=== PATIENT | female | born 2000 | race Caucasian/White ===

== ENCOUNTER 2018-11-05 18:21 | Emergency (ER) | payer MEDICAID ==
[~2018-11-05] VITALS: Ht 149.9 cm; Wt 58.2 kg
[2018-11-05 18:23] VITALS: Ht 149.9 cm; Wt 58.2 kg
[2018-11-05] MEDS ORDERED: ONDANSETRON 4 MG INJ IV STA (18:44)
[2018-11-05] MEDS ORDERED: KETOROLAC 15 MG INJ IV STA (18:44)
[2018-11-05] MEDS ORDERED: SOD CHLORIDE 0.9% 1,000 ML IV STA (18:44)
[2018-11-05] MEDS ORDERED: NAPR-985 PO (20:02)
[2018-11-05] MEDS ORDERED: BISM-34 PO (20:02)
[2018-11-05] MEDS ORDERED: ONDA4TAB14 PO (20:02)
[2018-11-05 20:19] VITALS: BP 102/67; PULSE 76; RESP 17
--- NOTE | 2018-11-06 00:56 | ERD ---
ER Documentation Chief Complaint Chief Complaint AP, DIARRHEA X'S 1 DAY HPI 18-year-old female presents to the emergency department complaining of intermittent nausea, vomiting, and diarrhea for the past 1 day. She had 2 episodes of vomiting today without blood. She states she ate food at [email or web address] which she believes was rotten and caused her symptoms. Symptoms are moderate in severity. She denies any other symptoms at this time. ROS All systems reviewed and are negative except as per history of present illness. Medications Home Meds Active Scripts Bismuth Subsalicylate* (Bismuth Subsalicylate*) 262 Mg/15 Ml Oral.susp, 15 ML PO Q6 PRN for DIARRHEA, #150 ML Prov:SANG DE LA FUENTE PA-C 11/05/18 Ondansetron (Ondansetron Odt) 4 Mg Tab.rapdis, 4 MG PO Q6H PRN for NAUSEA AND/OR VOMITING, #10 TAB Prov:SANG DE LA FUENTE PA-C 11/05/18 Naproxen* (Naprosyn*) 500 Mg Tablet, 500 MG PO BID PRN for PAIN AND/OR INFLAMMATION, #30 TAB Prov:SANG DE LA FUENTE PA-C 11/05/18 Allergies Allergies: Coded Allergies: Penicillins (Verified Allergy, Unknown, 11/05/18) PMhx/Soc Medical and Surgical Hx: pt denies Medical Hx, pt denies Surgical Hx Hx Alcohol Use: No Hx Substance Use: No Hx Tobacco Use: No Smoking Status: Never smoker FmHx Family History: No diabetes Physical Exam Vitals Vital Signs Date Temp Pulse Resp B/P (MAP) Pulse Ox O2 O2 Flow FiO2 Time Delivery Rate 11/05/18 98.4 76 17 102/67 100 Room Air 20:19 (79) 11/05/18 98.7 77 18 112/63 99 18:23 (79) Physical Exam Const: No acute distress Head: Atraumatic Eyes: Normal Conjunctiva ENT: Normal External Ears, Nose and Mouth. Neck: Full range of motion. No meningismus. Resp: Clear to auscultation bilaterally Cardio: Regular rate and rhythm, no murmurs Abd: Mild generalized abdominal tenderness on deep palpation. No significant McBurney's point tenderness. Negative Patrick sign. No rebound tenderness or guarding. Skin: No petechiae or rashes Back: No midline or flank tenderness Ext: No cyanosis, or edema Neur: Awake and alert Psych: Normal Mood and Affect Result Diagram: 11/05/18185611/05/181856 Results 24 hrs Laboratory Tests Test 11/05/18 18:56 11/05/18 18:57 POC Beta HCG, Qualitative NEGATIVE White Blood Count 8.9 10^3/ul Red Blood Count 4.28 10^6/ul Hemoglobin 12.2 g/dl Hematocrit 34.8 % Mean Corpuscular Volume 81.3 fl Mean Corpuscular Hemoglobin 28.5 pg Mean Corpuscular Hemoglobin Concent 35.1 g/dl Red Cell Distribution Width 11.9 % Platelet Count 357 10^3/UL Mean Platelet Volume 9.5 fl Immature Granulocytes % 0.200 % Neutrophils % 50.1 % Lymphocytes % 36.9 % Monocytes % 4.6 % Eosinophils % 7.6 % Basophils % 0.6 % Nucleated Red Blood Cells % 0.0 /100WBC Immature Granulocytes # 0.020 10^3/ul Neutrophils # 4.5 10^3/ul Lymphocytes # 3.3 10^3/ul Monocytes # 0.4 10^3/ul Eosinophils # 0.7 10^3/ul Basophils # 0.1 10^3/ul Nucleated Red Blood Cells # 0.0 10^3/ul Prothrombin Time 13.5 Sec Prothrombin Time Ratio 1.1 INR International Normalized Ratio 1.02 Activated Partial Thromboplast Time 33.2 Sec Urine Color STRAW Urine Clarity CLEAR Urine pH 7.0 Urine Specific [place] 1.008 Urine Ketones NEGATIVE mg/dL Urine Nitrite NEGATIVE mg/dL Urine Bilirubin NEGATIVE mg/dL Urine Urobilinogen NEGATIVE mg/dL Urine Leukocyte Esterase NEGATIVE [place]/ul Urine Hemoglobin NEGATIVE mg/dL Urine Glucose NEGATIVE mg/dL Urine Total Protein NEGATIVE mg/dl Sodium Level 142 mmol/L Potassium Level 3.5 mmol/L Chloride Level 105 mmol/L Carbon Dioxide Level 28 mmol/L Anion Gap 9 Blood Urea Nitrogen 12 mg/dl Creatinine 0.49 mg/dl Est Glomerular Filtrat Rate mL/min > 60 mL/min Glucose Level 116 mg/dl Calcium Level 9.9 mg/dl Total Bilirubin 0.3 mg/dl Direct Bilirubin 0.00 mg/dl Indirect Bilirubin 0.3 mg/dl Aspartate Amino Transf (AST/SGOT) 26 IU/L Alanine Aminotransferase (ALT/SGPT) 13 IU/L Alkaline Phosphatase 95 IU/L Total Protein 7.9 g/dl Albumin 4.4 g/dl Globulin 3.50 g/dl Albumin/Globulin Ratio 1.25 Lipase 83 U/L Current Medications Medications Dose Sig/Alejo Start Time Status Last (Trade) Ordered Route PRN Stop Time Admin Dose Reason Admin Sodium 1,000 ml @ Q1H STAT 11/05/18 DC 11/05/18 Chloride 1,000 mls/hr IV 18:44 11/05/18 19:04 19:43 Ondansetron 4 mg ONCE STAT 11/05/18 DC 11/05/18 HCl (Zofran IV 18:44 11/05/18 19:03 Inj) 18:46 Ketorolac 15 mg ONCE STAT 11/05/18 DC 11/05/18 Tromethamine IV 18:44 11/05/18 19:03 (Toradol) 18:46 Procedures/MDM 18-year-old female presents to the emergency department with signs and symptoms most consistent with gastroenteritis, likely viral etiology. Much lower suspicion for acute surgical abdomen including but not limited to bowel obstruction, acute cholecystitis, acute appendicitis, sepsis, or other emergencies. Abdominal examination is not concerning for acute surgical abdomen. Laboratory studies were within normal limits. No evidence of significant leukocytosis or anemia. Patient was administered IV Toradol, IV Zofran, IV fluids. Patient stabilized within the department and she was appropriate for outpatient management with a prescription for asthma subsalicylate and Zofran. She was feeling significantly improved prior to discharge. Patient advised to return immediately for any new or worsening or concerning symptoms. Shared my medical decision making with the patient and she understands and agrees with plan. Departure Diagnosis: Primary Impression: Nausea vomiting and diarrhea Condition: Fair Patient Instructions: Food Poisoning Or Gastroenteritis (6Y-Adult) Additional Instructions: Llame al doctor MAANA y charlene taylor LACEY PARA DENTRO DE 1-2 DELGADO.Dgale a la secretaria que nosotros le instruimos hacer esta lacey.Avise o llame si nuno condicin se empeora antes de la lacey. Regresa aqui si peor o no mejor. SANG DE LA FUENTE PA-C Nov 06, 2018 00:56
== END 2018-11-05 20:19 | disposition home or self-care (01) ==
LOC: FTE 18:21
DX: R11.2 Nausea with vomiting, unspecified (principal); R19.7 Diarrhea, unspecified
CPT/HCPCS: 36415; 80053; 81003; 81025; 83690; 85025; 85610; 85730; 96374; 96375; J1885; J2405; J7030; Z7502